=== PATIENT | female | born 1995 | race Caucasian/White ===

== ENCOUNTER → 2020-07-09 10:25 | Outpatient (CLI) | payer OTHER, SELFPAY ==
[2020-07-09 09:35] VITALS: BMI 24.8
[2020-07-09 10:57] LABS: Absolute Lymphocyte Count 2.04 X10^3/uL (0.83-4.51); Absolute Neutrophil Count 6.5 X10^3/uL (2.0-7.7); Basophil# 0.06 X10^3/uL; Basophil% 0.6 % (0-1); Eosinophil# 0.37 X10^3/uL; Eosinophils% 3.8 % (0-5); Hematocrit 41.2 % (37-47); Hemoglobin 13.5 g/dL (12.0-15.0); Lymphocyte # 2.04 X10^3/ul (4.0); Lymphocyte % 21.1 % (19-41); Mean Corp Hgb Conc 32.8 g/dL (32-36); Mean Corpuscular Hgb 28.7 pg (27.0-32.0); Mean Corpuscular Volume 87.5 fL (81-99); Monocyte% 7.2 % (0-10); NRBC Flagged by Analyzer 0 % (0-5); Neutrophil # 6.46 X10^3/uL (2.7-7.7); Platelet Count 315 K/mm3 (150-450); RBC Distribution Width CV 13.7 % (11.6-14.6); RBC Distribution Width SD 44.6 fl (35.1-43.9); Red Blood Count 4.71 M/mm3 (4.2-5.4); White Blood Count 9.7 K/mm3 (4.4-11.0)
[2020-07-09 11:14] LABS: Amphetamine Urine VISTA NEGATIVE (<1000 ng/mL); Barbiturate Urine VISTA NEGATIVE (< 200 ng/mL); Benzodiazepine Urine VISTA NEGATIVE (< 200 ng/mL); Cocaine Urine VISTA NEGATIVE (< 300 ng/mL); Ecstacy Urine VISTA NEGATIVE (< 500 ng/mL); Methadone Urine VISTA NEGATIVE (< 300 ng/mL); PCP Urine VISTA NEGATIVE (< 25 ng/mL); THC Urine VISTA NEGATIVE (< 50 ng/mL); Vista UDS pH Range 6
[2020-07-09 12:46] LABS: HIV - WCH Non-Reactive (Nonreactive); Hepatitis B Surface Antigen Non-Reactive (Nonreactive); Hepatitis C Antibody Non-Reactive (Nonreactive); Rubella IgG 37.8 IU/mL
[2020-07-10 05:23] LABS: Rapid Plasmin Reagin (RPR) NONREACTIVE (NONREACTIVE)
[2020-07-12 03:06] LABS: Chlamydia By Nucleic Acid AMP Negative (Negative)
[2020-07-12 08:12] LABS: Gonococcus By Nucleic Acid AMP Negative (Negative)
[2020-07-15 16:40] LABS: HPV Reflexed? NOT INDICATED
== END ==
PROVIDERS: Referring Provider Obstetrics & Gynecology; Visit Provider Obstetrics & Gynecology
DX: Z34.00 Encounter for supervision of normal first pregnancy, unspecified trimester (principal); Z12.4 Encounter for screening for malignant neoplasm of cervix
CPT/HCPCS: 36415; 80307; 85025; 86592; 86703; 86762; 86803; 86850; 86900; 86901; 87086; 87340; 87491; 87591; 88175; G0145

== ENCOUNTER → 2020-11-25 09:34 | Outpatient (CLI) | payer OTHER, SELFPAY ==
[2020-11-25 09:05] VITALS: BMI 28.8
[2020-11-25 10:22] LABS: Absolute Lymphocyte Count 1.55 X10^3/uL (0.83-4.51); Absolute Neutrophil Count 6.3 X10^3/uL (2.0-7.7); Basophil# 0.05 X10^3/uL; Basophil% 0.6 % (0-1); Eosinophil# 0.28 X10^3/uL; Eosinophils% 3.2 % (0-5); Hematocrit 39.8 % (37-47); Hemoglobin 12.9 g/dL (12.0-15.0); Lymphocyte # 1.55 X10^3/ul (4.0); Lymphocyte % 17.6 % (19-41); Mean Corp Hgb Conc 32.4 g/dL (32-36); Mean Corpuscular Hgb 29.4 pg (27.0-32.0); Mean Corpuscular Volume 90.7 fL (81-99); Mean Platelet Vol. 9.8 fl (6.2-12.0); Monocyte# 0.57 X10^3/uL; Monocyte% 6.5 % (0-10); NRBC Flagged by Analyzer 0 % (0-5); Neutrophil # 6.28 X10^3/uL (2.7-7.7); Neutrophil % 71.3 % (47-70); Platelet Count 230 K/mm3 (150-450); RBC Distribution Width CV 13.3 % (11.6-14.6); Red Blood Count 4.39 M/mm3 (4.2-5.4); White Blood Count 8.8 K/mm3 (4.4-11.0)
[2020-11-25 10:27] LABS: Glucose Challenge Gest 1H 50g 89 mg/dL (70-140)
== END ==
PROVIDERS: Referring Provider Nurse Practitioner Women's Health; Visit Provider Nurse Practitioner Women's Health
DX: Z34.90 Encounter for supervision of normal pregnancy, unspecified, unspecified trimester (principal)
CPT/HCPCS: 36415; 82950; 85025

== ENCOUNTER → 2021-01-23 | Outpatient (CLI) | payer OTHER, SELFPAY ==
[2021-01-23 09:04] VITALS: BMI 29.7
== END | disposition home or self-care (01) ==
LOC: LABSPEC 12:19
PROVIDERS: Referring Provider Obstetrics & Gynecology; Visit Provider Obstetrics & Gynecology
DX: Z34.93 Encounter for supervision of normal pregnancy, unspecified, third trimester (principal); Z3A.36 36 weeks gestation of pregnancy
CPT/HCPCS: 87081

== ENCOUNTER → 2021-02-02 14:09 | Outpatient (CLI) | payer OTHER, SELFPAY ==
[2021-01-07 08:51] VITALS: BMI 29.5
[2021-01-29 08:51] VITALS: BMI 30.1
== END ==
PROVIDERS: Referring Provider Obstetrics & Gynecology; Visit Provider Obstetrics & Gynecology
DX: Z34.93 Encounter for supervision of normal pregnancy, unspecified, third trimester (principal)
CPT/HCPCS: 87635; C9803; U0002; U0003

== ENCOUNTER 2021-02-09 02:15 | Inpatient (IN) | payer OTHER, SELFPAY ==
[2021-02-05 09:10] VITALS: BMI 29.6
[2021-02-09] VITALS (40 sets, daily range): BP systolic 102–145; BP diastolic 56–111; PULSE 73–105; RESP 16–18; TEMP 36.3–37.2; O2SAT 80–100; BMI 30.2
[2021-02-09 02:20] LABS: ROM Internal Control Test YES-OK TO RESULT pt. (Internal QC)
[2021-02-09 02:21] LABS: ROM Patient Test POSITIVE (Negative)
[2021-02-09] MEDS: Lactated Ringers 1,000 ML 200 ML IV (02:40)
[2021-02-09] MEDS: Lactated Ringers 500 ML 999 ML IV (02:40)
[2021-02-09 02:51] LABS: Absolute Lymphocyte Count 2.33 X10^3/uL (0.83-4.51); Absolute Neutrophil Count 8.1 X10^3/uL (2.0-7.7); Basophil# 0.05 X10^3/uL; Basophil% 0.4 % (0-1); Eosinophil# 0.22 X10^3/uL; Eosinophils% 1.9 % (0-5); Hematocrit 41.2 % (37-47); Hemoglobin 13.5 g/dL (12.0-15.0); Lymphocyte # 2.33 X10^3/ul (0.83-4.51); Lymphocyte % 19.7 % (19-41); Mean Corp Hgb Conc 32.8 g/dL (32-36); Mean Corpuscular Hgb 28.1 pg (27.0-32.0); Mean Corpuscular Volume 85.8 fL (81-99); Mean Platelet Vol. 11.3 fl (6.2-12.0); Monocyte# 1.02 X10^3/uL; Monocyte% 8.6 % (0-10); NRBC Flagged by Analyzer 0 % (0-5); Neutrophil # 8.13 X10^3/uL (2.7-7.7); Neutrophil % 68.7 % (47-70); Platelet Count 215 K/mm3 (150-450); RBC Distribution Width CV 13.4 % (11.6-14.6); RBC Distribution Width SD 41.7 fl (35.1-43.9); White Blood Count 11.8 K/mm3 (4.4-11.0)
--- NOTE | 2021-02-09 02:53 | PCM.HPOB.BLA ---
- Problem List (1) 36 weeks gestation of Status: Acute Comment: COVID test ordered 01/21/21 (sche 02/02 at 1350) NEGATIVE (2) Status: Acute Qualifiers: Comment: Declines genetic, carrier, and AFP. Normal anatomy (3) Supervision of normal first Status: Acute Qualifiers: Comment: PRR TAB 02/12/21 Boy! 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 Patient has clear loss of fluid no significant vaginal bleeding has been feeling good movement. She had initial 4-minute heart rate deceleration down into the 70s upon initial presentation which had good recovery with reassuring status afterwards. OB Visit TAB Calculator Estimated Delivery Date Method Current WG Current Estimate 02/12/21 LMP (Certain) 39w 0d Expected Delivery Route/Plan Labor Preferences- CB/BF classes: yes labor support person: Sara labor intervention preferences: declines hep B, ok with vitamin K and eye ointment, open to standard interventions pain management options preferred: open to epidural but desires natural cut cord/dad catch: cord : yes PP control planned: considering IUD discussed possible routes of delivery and associated risks: discussed possible delivery modalities and possible indications for each including R/B/A of , VAVD, FAVD, and CS. questions answered. special requests: none Specific Issue/Plans flu vaccine: declined tdap vaccine: declined rhogam: na LARC form signed: yes movement and labor precautions reviewed. Problem list reviewed and updated with the most current plan of care details and appropriate orders placed. Relevant counseling for the gestational age provided. Continue routine care and follow up unless otherwise noted in visit notes/problem list details Initial Weight: 160 lb Date EGA Weight BP Urine Prot Glucose FHR FuHt Pres Dilation Effaced St Visit Note 07/09/20 8w 6d 163 lb 4 oz (+3 lb 4 oz) 138/82 180 GP - CRL 180 consistent with LMP. GP - CRL 16mm consistent with LMP. 08/06/20 12w 6d 167 lb 6 oz (+7 lb 6 oz) 120/80 Negative Negative 155 GP - no cramping or bleeding. Nausea improving. Declines genetic testing. 09/01/20 16w 4d 168 lb (+8 lb) 118/78 Negative Negative 150 SM- no vb lof no cramping 09/30/20 20w 5d 177 lb 8 oz (+17 lb 8 oz) 124/70 Negative Negative 145 GP - no cramping or bleeding +FM. Nl anatomy. Planning to put envelope with gender under tree and open [place] morning. 11/06/20 26w 0d 184 lb (+24 lb) 130/78 Negative Negative 155 GP - no LOF, VB, DFM, ctx. Having a boy! Considering Guerrero vs. Samuels for names. GCT next visit. 11/25/20 28w 5d 189 lb 6 oz (+29 lb 6 oz) 128/64 Negative Negative 148 28 MH:No VB, LOF. Good FM. 28 wk labs, larc. Considering IUD pp. Consider tdap next visit. 12/12/20 31w 1d 191 lb (+31 lb) 134/80 Negative Negative 140 31 GP - no LOF, VB, DFM, ctx. Discussed labor preferences and routes of delivery. 12/24/20 32w 6d 191 lb 6 oz (+31 lb 6 oz) 120/70 Negative Negative 135 32 GP - no LOF, VB, DFM, ctx. Denies complaints. 01/07/21 34w 6d 194 lb 6 oz (+34 lb 6 oz) 112/80 Negative Negative 140 34 GP - no LOF, VB, DFM, ctx. 01/23/21 37w 1d 196 lb (+36 lb) 116/80 Negative Negative 140 37 Cephalic 2 40 -2 SM- no vb lof good fm no regular ctx gbs done 01/29/21 38w 0d 198 lb (+38 lb) 118/86 Negative Negative 150 38 Cephalic 3 70 -2 GP - no LOF, VB, DFM, ctx. Membranes swept today. COVID testing rescheduled. 02/05/21 39w 0d 195 lb (+35 lb) 130/72 Negative Negative 150 39 Cephalic 3 70 -2 SM- no vb lof good fm no rgular ctx ACOG First Trimester First Trimester: Desire for , Alcohol, Tobacco Cessation, Illicit/Recreational Drug/Substance Use, Intimate Partner Violence, Barriers to care, Unstable Housing, Communication Barriers, Environmental/Work Hazards, Anticipated Course of Care, Toxoplasmosis Precations, Use of Any medications, Sexual activity, Exercise, Dental Care, Childbirth classes/Hospital facilities, Travel, Indications for US and Screening for Aneuploidy Second Trimester Second Trimester: Signs and Symptoms of Labor, Selecting a care provider, Reproductive Life Planning, Care Planning, Depression/Anxiety and Intimate Partner Violence; discussed Tobacco Cessation Diagnostics Diagnostics Diagnostics Glucose 1 Hr 50 gm 89 mg/dL (70-140) 11/25/20 Hgb 12.9 g/dL (12.0-15.0) 11/25/20 Hct 39.8 % (37-47) 11/25/20 Details: HIV: Urine Culture: Sequential Screen: NIPT Screen: ROS Const Reports system reviewed and no additional complaints, except as docu Card Reports system reviewed and no additional complaints, except as docu Resp Reports system reviewed and no additional complaints, except as docu GI Reports system reviewed and no additional complaints, except as docu, Reports nausea Reports system reviewed and no additional complaints, except as docu Musc Reports system reviewed and no additional complaints, except as docu Exam Const General: cooperative, healthy appearing, comfortable, anxious HENMT Head: normal to inspection Nose: external nose normal Face and sinus: normal facial exam Neck Neck: normal visual inspection, full ROM, no lymphadenopathy Thyroid: thyroid normal Chest Chest palpation & inspection: normal inspection of the chest Resp Effort & Inspection: normal respiratory effort GI Inspection: normal to inspection Palpation: soft, other (gravid uterus) Other: infant vertex and appropriate size for gestational age Other: Cervical Exam: Extrem General: pedal edema Results POC Urinalysis 2 Dip (Clinic) Office Urine Glucose Negative Last Edit by Viviana Bragg on 02/05/21 09:15 Office Urine Protein Negative Last Edit by Viviana Bragg on 02/05/21 09:15 Assessment & Plan Problems 1. Supervision of normal first Z34.00 PRR TAB 02/12/21 Boy! Spouse:Sara 2. Z34.90 Declines genetic, carrier, and AFP. Normal anatomy 3. 36 weeks gestation of Z3A.36 COVID test ordered 01/21/21 (sche 02/02 at 1350) NEGATIVE Patient presents IAL, plan expectant management for , pitocin/AROM PRN if needed. Pain management: Plans epidural. GBS negative. Management of any complications: None I have reviewed the [facility] and made any clinically relevant updates. Orders Orders: POC Urinalysis 2 Dip (Clinic) Today Coding Level of Care Code OB Routine Diagnoses Supervision of normal first Z34.00 Z34.90 36 weeks gestation of Z3A.36
[2021-02-09] MEDS: fentaNYL-bupivacaine (epidural) 100 ML BAG EPIDURAL (03:22)
[2021-02-09] MEDS: Oxytocin 30 units/NS 500 ml 30 UNITS/500 ML IV.SOLN 334 UNITS IV (04:22)
--- NOTE | 2021-02-09 04:30 | PCM.OPRPT ---
Problem List (1) 36 weeks gestation of Status: Acute Comment: COVID test ordered 01/21/21 (sche 02/02 at 1350) NEGATIVE (2) Status: Acute Qualifiers: Comment: Declines genetic, carrier, and AFP. Normal anatomy (3) Supervision of normal first Status: Acute Qualifiers: Comment: PRR TAB 02/12/21 Boy! Spouse:Sara Vaginal Delivery Maternal Presentation: Active Labor ial 5 cm Amniotic Membrane Rupture Type: Spontaneous at home Amniotic Fluid Description: Clear Final TAB: 02/12/21 Gestational age: 39 Weeks and 4 Days Date of Procedure: 02/09/21 Pre-Operative Diagnosis: ial Post-Operative Diagnosis: same Surgery/ Procedure Performed: Spontaneous Vaginal Delivery Type of Anesthesia: Epidural - inadequate, Local with 1% lidocaine, Pudendal block with 1% lidocaine Description of Procedure: Patient began pushing and delivered the head in the asha presentation. Epidural was inadequate therefore a pudendal block was placed bilaterally, 2 cm medial and posterior to the ischial spines with 10cc lidocaine bilaterally injected. The head was delivered atraumatically. The anterior and posterior shoulders delivered without complication followed by the rest of the infant and the infant was placed on the maternal abdomen. Delayed cord clamping was employed for approximately 60 seconds. Cord was clamped and cut and gentle traction was applied to the cord and the placenta delivered spontaneously immediately following it was noted to be intact with three-vessel cord. The perineum and vagina were inspected and noted to have a first-degree perineal laceration repaired in the usual fashion with 3-0 Vicryl repeat. EBL was 100 cc. Patient and infant tolerated delivery well.asha Presentation: ASHA Placental Delivery Description: Spontaneous Placenta Disposition: [facility] Cord Vessel Description: 3 Vessels Cord Entanglement: None Estimated Blood Loss: 100 Infant A gender: Male Episiotomy Description: None Laceration: Perineal Extension/lac, 2nd degree Medications given after delivery: IV Pitocin Complications: None Multi Select Codes - Urinary/Genital Urinary/Genital CPT Codes: 41499 Vaginal Delivery global pkg - pudendal block also placed
[2021-02-09] MEDS: 0.9% Saline Lock 10 ML Syringe IV (06:43)
[2021-02-10 00:45] VITALS: BP 128/71; PULSE 74; RESP 16; TEMP 36.9; O2SAT 99
[2021-02-10 08:00] VITALS: BP 118/63; PULSE 77; RESP 18; TEMP 36.7; O2SAT 96
--- NOTE | 2021-02-10 10:38 | PCM.PN.OB ---
Subjective Subjective: Patient doing well without complaints. Tolerating PO. Ambulating and voiding without difficulty. Breast feeding well. Denies chest pain, shortness of breath, calf pain/swelling, fevers, chills, lightheadedness. Objective Data Objective Data Vital Signs: Vital Signs Temp Pulse Resp BP Pulse Ox 98.0 F 77 18 118/63 96 02/10/21 08:00 02/10/21 08:00 02/10/21 08:00 02/10/21 08:00 02/10/21 08:00 Oxygen Delivery Method Room Air Weight: 199 lb Body Mass Index (BMI) 30.2 Intake & Output: Intake and Output for Last 24 Hours 02/08/21 02/09/21 02/10/21 23:59 23:59 23:59 Intake Total 1805.40 / 1805.40 Output Total 20 / Balance 1785.40 / 1785.40 Lab / Micro Data Result Diagrams: 02/09/21 02:40 Physical Exam Const alert and oriented x3 General Appearance: cooperative Resp normal respiratory effort GI Palpation: soft and other Other Details: FF below U ; Negative for tender Assessment & Plan Assessment/Plan (1) : Status: Resolved Code(s): Z34.90 - Encounter for supervision of normal , unspecified, unspecified trimester Plan: s/p PPD # 1 1. routine post delivery care 2. breast feeding- support given 3. rh positive 4. rubella immune 5. home today
--- NOTE | 2021-02-10 10:46 | DCINST_ITS ---
Discharge Instructions Outpatient Procedure Reason For Visit: VAG Diet Discharge Diet: No restrictions Activity Discharge Activity: Return to Normal Activity and May Take a Tub Bath (in 4-6 weeks) May shower in (days): 0 May resume sexual activity in: 6-8 weeks Weight Bearing Status: Weight bearing as tolerated Lifting Restrictions: none Dressing / Incision Call your doctor if you observe: Fever of 101 or Higher, Using more than one pad per hour, Shortness of breath, Chest pain, Uncontrolled pain and - (If any issues, please contact the [facility] for support) Follow Up Care Please Follow Up With: [facility] When: 1 week if elevated blood pressures, and in 6 weeks for full visit. If you would like an IUD inserted at your visit, please inform staff when you call to schedule of this. Test Results: Test results from this visit will be discussed in further detail at your follow-up appointment, if applicable. Discharge Plan Admission Admit Date/Time: 02/09/21 02:15 Attending Provider: Kristina Beyer Primary Care Provider: Care Physician,Vanessa Primary Discharge Orders/Prescriptions Prescriptions: No Action PNV cmb#95-ferrous fumarate-FA 1 EACH tablet 1 tablet PO DAILY RF: 0 Referrals: Care Physician,No Primary [Primary Care Provider] -
[2021-02-10 15:03] VITALS: BP 114/72; PULSE 78; RESP 18; TEMP 36.4; O2SAT 97
== END 2021-02-10 17:40 | disposition home or self-care (01) | DRG 807 ==
LOC: WPOUT 02:17 → WP 02:17
PROVIDERS: Admitting Provider Obstetrics & Gynecology; Visit Provider Obstetrics & Gynecology
DX: O76 Abnormality in fetal heart rate and rhythm complicating labor and delivery (principal); Z37.0 Single live birth; O70.1 Second degree perineal laceration during delivery; Z3A.39 39 weeks gestation of pregnancy
CPT/HCPCS: 59025; 59050; 84112; 85025; 86850; 86900; 86901; 99218; J7120; A4216; G0378

== ENCOUNTER → 2022-06-11 | Outpatient (CLI) | payer OTHER, SELFPAY ==
[2022-06-11 12:36] LABS: Absolute Lymphocyte Count 1.99 X10^3/uL (0.83-4.51); Absolute Neutrophil Count 6.9 X10^3/uL (2.0-7.7); Basophil# 0.04 X10^3/uL; Basophil% 0.4 % (0-1); Eosinophil# 0.23 X10^3/uL; Eosinophils% 2.4 % (0-5); Hematocrit 40.2 % (37-47); Hemoglobin 13.6 g/dL (12.0-15.0); Lymphocyte # 1.99 X10^3/ul (0.83-4.51); Lymphocyte % 20.4 % (19-41); Mean Corp Hgb Conc 33.8 g/dL (32-36); Mean Corpuscular Hgb 29.4 pg (27.0-32.0); Mean Platelet Vol. 10.2 fl (6.2-12.0); Monocyte% 6.1 % (0-10); NRBC Flagged by Analyzer 0 % (0-5); Neutrophil # 6.87 X10^3/uL (2.7-7.7); Neutrophil % 70.3 % (47-70); Platelet Count 280 K/mm3 (150-450); RBC Distribution Width CV 13.9 % (11.6-14.6); RBC Distribution Width SD 44.4 fl (35.1-43.9); Red Blood Count 4.62 M/mm3 (4.2-5.4); White Blood Count 9.8 K/mm3 (4.4-11.0)
[2022-06-11 15:48] LABS: HIV - WCH Non-Reactive (Nonreactive); Hepatitis B Surface Antigen Non-Reactive (Nonreactive); Hepatitis C Antibody Non-Reactive (Nonreactive); Rubella IgG Reactive (Nonreactive); Syphilis Antibodies Non-reactive
[2022-06-11 18:01] LABS: Amphetamine Urine VISTA NEGATIVE (<1000 ng/mL); Barbiturate Urine VISTA NEGATIVE (< 200 ng/mL); Benzodiazepine Urine VISTA NEGATIVE (< 200 ng/mL); Cocaine Urine VISTA NEGATIVE (< 300 ng/mL); Ecstacy Urine VISTA NEGATIVE (< 500 ng/mL); Methadone Urine VISTA NEGATIVE (< 300 ng/mL); PCP Urine VISTA NEGATIVE (< 25 ng/mL); THC Urine VISTA NEGATIVE (< 50 ng/mL); Vista UDS pH Range 6
[2022-06-14 21:08] LABS: Chlamydia By Nucleic Acid AMP Negative (Negative)
[2022-06-16 15:24] LABS: Gonococcus By Nucleic Acid AMP Negative (Negative)
== END | disposition home or self-care (01) ==
PROVIDERS: Referring Provider Obstetrics & Gynecology; Visit Provider Obstetrics & Gynecology
DX: Z34.91 Encounter for supervision of normal pregnancy, unspecified, first trimester (principal); Z3A.13 13 weeks gestation of pregnancy
CPT/HCPCS: 36415; 80307; 85025; 86703; 86762; 86780; 86803; 86850; 86900; 86901; 87086; 87340; 87491; 87591

== ENCOUNTER → 2022-08-16 | Outpatient (CLI) | payer OTHER, SELFPAY ==
--- NOTE | 2022-08-16 08:08 | US_ITS ---
INDICATION: Anatomy. EXAMINATION: Ultrasound US OB Greater Than 14 Weeks TECHNIQUE: Transabdominal and transvaginal pelvic ultrasound was performed. COMPARISON: None. LMP: March 09, 2022 Beta-hCG: Unknown. Provided EGA: December 14, 2022 FINDINGS: INTRAUTERINE GESTATION(s): Single. ESTIMATED GESTATIONAL AGE: 22 weeks 6 days ESTIMATED DUE DATE (TAB): December 14, 2022 HEART MOTION is 147 bpm. AMNIOTIC FLUID INDEX (MIKE): Normal. Largest pocket measures 6.58 cm ESTIMATED WEIGHT: 5 47 g Percentile 46%. BIOPHYSICAL PROFILE (BPP): Not assessed. PRESENTATION: Cephalic PLACENTA: Anterior. There is no placenta previa or abruption. Grade 0 CERVIX: 3.2 cm MATERNAL OVARIES: No adnexal masses. FREE FLUID: None. Evaluation of anatomy demonstrates the lateral ventricles, choroid cysts, cerebellum, cisterna magna and face nose and lips appear normal. The four-chamber view of the heart is visualized. The diaphragm, stomach, abdominal wall, 3 vessel cord and cord insertion, kidneys and urinary bladder are visualized. There is mild dilatation of the bilateral renal pelvises. The cervical, thoracic and lumbar spine and sacrum are visualized. The upper and lower extremities are visualized. US/OB Anatomy Scan IMPRESSION: 1. Live single intrauterine at 22 weeks, 6 days. TAB is December 14, 2022. 2. EFW 547 g. 3. Adequate amniotic fluid. 4. Anterior grade 0 placenta. 5. Vertex presentation. 6. Normal anatomy. Electronically Signed: Josesito Boone DO at 21:53 EDT ,
== END | disposition home or self-care (01) ==
PROVIDERS: Referring Provider Registered Nurse; Visit Provider Registered Nurse
DX: Z34.90 Encounter for supervision of normal pregnancy, unspecified, unspecified trimester (principal)
CPT/HCPCS: 76805; 76817

== ENCOUNTER → 2022-09-27 | Outpatient (CLI) | payer OTHER, SELFPAY ==
[2022-09-27 11:46] LABS: Basophil# 0.04 X10^3/uL; Basophil% 0.5 % (0-1); Eosinophil# 0.26 X10^3/uL; Eosinophils% 3.1 % (0-5); Hematocrit 37.3 % (37-47); Hemoglobin 12.3 g/dL (12.0-15.0); Lymphocyte % 16.8 % (19-41); Mean Corpuscular Hgb 29.4 pg (27.0-32.0); Monocyte# 0.61 X10^3/uL; Monocyte% 7.3 % (0-10); NRBC Flagged by Analyzer 0 % (0-5); Neutrophil # 5.97 X10^3/uL (2.7-7.7); Neutrophil % 71.6 % (47-70); Platelet Count 218 K/mm3 (150-450); RBC Distribution Width CV 13.3 % (11.6-14.6); RBC Distribution Width SD 43.8 fl (35.1-43.9); Red Blood Count 4.19 M/mm3 (4.2-5.4); White Blood Count 8.3 K/mm3 (4.4-11.0)
[2022-09-27 11:55] LABS: Glucose Challenge Gest 1H 50g 110 mg/dL (70-140)
== END | disposition home or self-care (01) ==
LOC: PAVLAB 11:22
PROVIDERS: Referring Provider Registered Nurse; Visit Provider Registered Nurse
DX: Z34.82 Encounter for supervision of other normal pregnancy, second trimester (principal)
CPT/HCPCS: 36415; 82950; 85025

== ENCOUNTER → 2022-11-17 | Outpatient (CLI) | payer OTHER, SELFPAY ==
[2022-11-18 01:46] LABS: Group B Strep DNA By PCR Negative (Negative); Internal Control PASS; Probe Check PASS; Specimen Processing Control PASS
== END | disposition home or self-care (01) ==
PROVIDERS: Referring Provider Nurse Practitioner Women's Health; Visit Provider Nurse Practitioner Women's Health
DX: Z34.90 Encounter for supervision of normal pregnancy, unspecified, unspecified trimester (principal)
CPT/HCPCS: 87081; 87653

== ENCOUNTER 2022-12-06 10:21 | Inpatient (IN) | payer OTHER, SELFPAY ==
[2022-12-06] VITALS (15 sets, daily range): BP systolic 110–141; BP diastolic 57–89; PULSE 70–104; RESP 16; TEMP 36.6–37.1; O2SAT 98–100; BMI 30.7
[2022-12-06] MEDS: Lactated Ringers 1,000 ML 200 ML IV (10:25)
[2022-12-06 10:47] LABS: Absolute Lymphocyte Count 1.86 X10^3/uL (0.83-4.51); Absolute Neutrophil Count 8.3 X10^3/uL (2.0-7.7); Basophil# 0.04 X10^3/uL; Basophil% 0.3 % (0-1); Eosinophil# 0.19 X10^3/uL; Eosinophils% 1.6 % (0-5); Hematocrit 39.5 % (37-47); Hemoglobin 12.7 g/dL (12.0-15.0); Lymphocyte # 1.86 X10^3/ul (0.83-4.51); Lymphocyte % 16.1 % (19-41); Mean Corp Hgb Conc 32.2 g/dL (32-36); Mean Corpuscular Hgb 26.8 pg (27.0-32.0); Mean Corpuscular Volume 83.3 fL (81-99); Mean Platelet Vol. 10.9 fl (6.2-12.0); Monocyte# 0.88 X10^3/uL; Monocyte% 7.6 % (0-10); NRBC Flagged by Analyzer 0 % (0-5); Neutrophil # 8.28 X10^3/uL (2.7-7.7); Neutrophil % 71.7 % (47-70); Platelet Count 233 K/mm3 (150-450); RBC Distribution Width CV 13.6 % (11.6-14.6); RBC Distribution Width SD 41.6 fl (35.1-43.9); Red Blood Count 4.74 M/mm3 (4.2-5.4); White Blood Count 11.6 K/mm3 (4.4-11.0)
[2022-12-06] MEDS: Oxytocin 10 UNITS/ML Vial IM (11:00)
--- NOTE | 2022-12-06 11:10 | HP.PCM.OB_ITS ---
HPI - General General Date of Admission: 12/06/22 HPI Narrative JULY ROJAS, is a 27 F who presents at 38.6 with contractions since this morning, increasing in intensity. low risk . 100/0 with pressure to push per nursing. Maternal Data Information TAB Calculator Estimated Delivery Date Method Current WG Current Estimate 12/14/22 LMP (Certain) 38w 6d Other Estimates 12/14/22 Ultrasound #1 38w 6d PFSH PFSH Medical History (Updated 12/06/22 @ 11:13 by Akanksha Castro CNM) Seasonal allergies Home Medications vit no.95-ferrous fumarate 28 mg-folic acid 800 mcg tablet 1 tablet PO DAILY 02/09/21 [History Last Taken 02/07/21 08:00] Allergy/AdvReac Type Severity Reaction Status Date / Time No Known Allergies Allergy Verified 12/06/22 10:26 Family History Father Hypertension Social History adopted: No household members: spouse and children housing: house number of children: 1 current occupational status: employed 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 current occupational exposures/hazards: No pets and animals: Yes (Not managing litterbox) pets and animals: cat(s) history of recent travel: No sexually active: Yes Smoking Status: Never smoker second hand exposure: No alcohol intake: former details: not while substance use type: does not use well-balanced diet: daily or most days caffeine: No eating out: 1-3 times/week during the past year weight has: remained stable ruben/episcopalian: [employer]ism seatbelt use: always do you feel safe at home: Yes additional social history: - Sara History 2 Elective abortions Hx Para 1 Spontaneous abortions Hx # Term Pregnancies 1 Ectopic pregnancies Hx # Pregnancies Multiple births # of living children 1 Past Pregnancies Del. Date Name GA/Weeks Outcome Route Bth Weight Gen Labor Lgth Anesthesia Del Locatn Provider FOB 02/09/21 Gu[facility] 39 live - full term Male [facility] Kayleen Visit Details Expected Delivery Route/Plan Labor Preferences- CB/BF classes: recommended, labor support person: [Sara] labor intervention preferences: none pain management options preferred: open to epidural cut cord/dad catch: cut cord : plans PP control planned:condoms discussed possible routes of delivery and associated risks: [] special requests: [] Plans Covid status: discussed Flu vaccine: discussed Tdap vaccine: dicussed Rhogam: na LARC form signed: obtained movement and labor precautions reviewed. Problem list reviewed and updated with the most current plan of care details and appropriate orders placed. Relevant counseling for the gestational age provided. Continue routine care and follow up unless otherwise noted in visit notes/problem list details OB Flowsheet Initial Weight: Not Recorded Date -?-?-?-?-?-?-?-?-?-?-?-?- EGA Weight BP Urine Prot -?-?-?-?-?-?-?-?-?-?-?-?- Glucose FHR FuHt Pres Dilation -?-?-?-?-?-?-?-?-?-?-?-?- Effaced St Visit Note 06/11/22 -?-?-?-?-?-?-?-?-?-?-?-?- 13w 3d 171 lb 98/70 -?-?-?-?-?-?-?-?-?-?-?-?- 160 -?-?-?-?-?-?-?-?-?-?-?-?- SM- CRL cons wit h LMP 07/09/22 -?-?-?-?-?-?-?-?-?-?-?-?- 17w 3d 178 lb 130/70 Negative -?-?-?-?-?-?-?-?-?-?-?-?- Negative 150 -?-?-?-?-?-?-?-?-?-?-?-?- SM- no vb karinai ng counseled about vaccinations 08/02/22 -?-?-?-?-?-?-?-?-?-?-?-?- 20w 6d 183 lb 6 oz 122/77 Nega tive -?-?-?-?-?-?-?-?-?-?-?-?- Negative 141 20 -?-?-?-?-?-?-?-?-?-?-?-?- LC- LC-no vb,cramping, lof. +flu tters. anatomy scan orderd. 08/30/22 -?-?-?-?-?-?-?-?-?-?-?-?- 24w 6d 189 lb 6 oz 113/77 Nega tive -?-?-?-?-?-?-?-?-?-?-?-?- Negative 140 24 -?-?-?-?-?-?-?-?-?-?-?-?- LC-no vb, crampi ng. feeling well. has trip for work scheduled around 35 weeks. discussed risk and benefits. 09/27/22 -?-?-?-?-?-?-?-?-?-?-?-?- 28w 6d 194 lb 116/74 -?-?-?-?-?-?-?-?-?-?-?-?- 140 29 -?-?-?-?-?-?-?-?-?-?-?-?- SM- no vb lof go od fm no regular ctx 10/19/22 -?-?-?-?-?-?-?-?-?-?-?-?- 32w 0d 194 lb 4 oz 125/78 Nega tive -?-?-?-?-?-?-?-?-?-?-?-?- Negative 140 32 -?-?-?-?-?-?-?-?-?-?-?-?- SM- no vb lof go od fm no reuglar ctx 11/05/22 -?-?-?-?-?-?-?-?-?-?-?-?- 34w 3d 198 lb 4 oz 109/74 Nega tive -?-?-?-?-?-?-?-?-?-?-?-?- Negative 130 34 -?-?-?-?-?-?-?-?-?-?-?-?- LC- no vb/ctx/lo f. good fm. no concerns. 11/17/22 -?-?-?-?-?-?-?-?-?-?-?-?- 36w 1d 200 lb 6 oz 120/78 Nega tive -?-?-?-?-?-?-?-?-?-?--?-?- Negative 138 36 -?-?-?-?-?-?-?-?-?-?-?-?- MH-No VB, LOF. G ood Fm. GBS 11/25/22 -?-?-?-?-?-?-?-?-?-?-?-?- 37w 2d 201 lb 110/72 Negative -?-?-?-?-?-?-?-?-?-?-?-?- Negative 148 37 -?-?-?-?-?-?-?-?-?-?-?-?- MH-No Vb, LOF. G ood FM. Occa BH. Declines wanting ointment in baby's eyes or Vit K if a girl. Will discuss further 12/02/22 -?-?-?-?-?-?-?-?-?-?-?-?- 38w 2d 203 lb 4 oz 129/75 -?-?-?-?-?-?-?-?-?-?-?-?- 130 39 Cephalic 3.5 -?-?-?-?-?-?-?-?-?-?-?-?- 50 -2 SM- no vb lof good fm no regular ctx NST FHR Rate Baby A Baseline: 125 Variability:: Moderate Accelerations:: 15 x 15 Decelerations:: None NST Reactive:: Yes FHR Category:: Category I Uterine Activity:: q2-3 minutes ROS Cardiovascular Cardiovascular: Denies abdominal pain, chest pain, diaphoresis or dyspnea Genitourinary Genitourinary: Reports change in urinary stream Musculoskeletal Musculoskeletal: Reports none Integumentary Integumentary: Reports none Neurologic Neurologic: Reports none Psychiatric Psychiatric: Reports none Endocrine Endocrinology: Reports none Hematologic/Lymphatic Hematologic/Lymphatic: Reports none Allergic/Immunologic Allergic/Immunologic: Reports none Vital Signs Vital Signs Vital Signs: 12/06/22 10:30 12/06/22 10:30 12/06/22 10:30 Temperature Temperature Source Temporal Pulse Rate 86 Blood Pressure 141/89 H BP Systolic 141 BP Diastolic 89 Pulse Ox 12/06/22 10:30 12/06/22 10:30 12/06/22 11:06 Temperature 97.9 F Temperature Source Pulse Rate Blood Pressure 120/61 BP Systolic 120 BP Diastolic 61 Pulse Ox 100 12/06/22 11:06 12/06/22 11:06 12/06/22 11:06 Temperature 98.2 F 98.3 F Temperature Source Pulse Rate 86 Blood Pressure BP Systolic BP Diastolic Pulse Ox Weight Weight: 202 lb Body Mass Index (BMI) 30.7 Physical Exam Const alert and oriented x3 Exam Limitations: no limitations HEENT normocephalic Neck full ROM Chest inspection of chest normal Resp normal respiratory effort, normal air movement and no retractions Effort and Inspection: symmetric chest movement Cardio regular rate Peripheral Pulses: pulses 2+ throughout GI normal to inspection, nondistended, normoactive bowel sounds Inspection: gravid appearance of the vagina normal External Female Exam: normal appearance of the urethra; Negative for external l esion OB / External & Speculum: external exam normal Manual OB Exam: estimated gestational size appropriate, presentation cephalic, dilated 9, effaced 100 and station 0 (per nursing) Uterus Palpation: Negative for uterus tender Extremity normal to inspection Skin no rashes or lesions noted Psych Activity / Motor Behavior: appropriate eye contact Speech: normal speech Labs Labs Labs: Blood Type A POSITIVE Antibody Screen NEGATIVE Hct 39.5 % (37-47) Hgb 12.7 g/dL (12.0-15.0) Obstetrics US Syphilis Total Ab Non-reactive Rubella IgG Antibody Reactive (Nonreactive) Hep Bs Antigen Non-Reactive (Nonreactive) Chlamydia DNA ([facility]) Negative (Negative) Neisseria gonorrhoeae DNA ([facility]) Negative (Negative) HIV 1&2 Antibody Non-Reactive (Nonreactive) Glucose 1 Hr 50 gm 110 mg/dL (70-140) Group B Strep DNA Negative (Negative) Assessment & Plan (1) Spontaneous onset of labor: PLAN: Patient presents IAL, plan expectant management for . AROM Pain management: plans epidural. GBS neg. Management of any complications: none I have reviewed the [facility] and made any clinically relevant updates. Dr. Beyer updated on admission, exam and poc. agress with midwifery primary management. available for consult
--- NOTE | 2022-12-06 11:16 | EX.PCM.OBRPT ---
Assessment & Plan (1) (spontaneous vaginal delivery): COMMENT: IAL at 38.6 boy :Jameson. ADKINS Maternal Data Information TAB Calculator Estimated Delivery Date Method Current WG Current Estimate 12/14/22 LMP (Certain) 38w 6d Other Estimates 12/14/22 Ultrasound #1 38w 6d Final TAB Source: LMP Gestational age: 38.6 Vaginal Delivery Maternal Presentation Maternal Presentation: Active Labor Operative Information Date of Procedure: 12/06/22 Pre-Operative Diagnosis: Post-Operative Diagnosis: Surgery / Procedure Performed: Spontaneous Vaginal Delivery Type of Anesthesia: None Estimated Blood Loss: 200 Time of Delivery: 10:55 Findings Description of Procedure: Patient began pushing and delivered the head in the SHANE presentation. The head was delivered atraumatically. The anterior and posterior shoulders delivered without complication followed by the rest of the and the was placed on the maternal abdomen. Delayed cord clamping was employed for approximately 3 minutes. Cord was clamped and cut and gentle traction was applied to the cord and the placenta delivered spontaneously immediately following it was noted to be intact with three-vessel cord. The perineum and vagina were inspected and noted to have no laceration. EBL was 200cc. Patient and infant tolerated delivery well. infant with polydactyl on right thumb. will have pedi evaluate. Presentation: Vertex Amniotic Membrane Rupture Type: Artificial Time of Membrane Rupture: 1048 Amniotic Fluid Description: Clear Placental Delivery Description: Spontaneous Placenta Disposition: [facility] Cord Vessel Description: 3 Vessels Cord Entanglement: None A Gender: Male (1 minute): 8 (5 minute): 9 Delayed Cord Clamping: Yes Post Vaginal Delivery Medications Given After Delivery: - (IM pitocin) Episiotomy Description: None Multi Select Codes Addendum Addendum: ATTN CUSTOMER ACCOUNT SPECIALIST:RACIEL DELIVERY
[2022-12-06] MEDS: Naproxen 500 MG Tablet PO (11:53)
[2022-12-07] VITALS (9 sets, daily range): BP systolic 119–128; BP diastolic 57–63; PULSE 68–78; RESP 16; TEMP 36.4–36.9; O2SAT 97–99
--- NOTE | 2022-12-07 07:42 | PN.OBGYN_ITS ---
Subjective Subjective Patient doing well without complaints. Tolerating PO. Ambulating and voiding without difficulty. Feeding well. Denies chest pain, shortness of breath, calf pain/swelling, fevers, chills, lightheadedness. Objective Data Objective Data Vital Signs: Vital Signs Temp Pulse Resp BP Pulse Ox O2 Del Method 97.5 F L 68 16 119/57 L 97 Room Air 12/07/22 03:38 12/07/22 03:38 12/07/22 03:38 12/07/22 03:38 12/07/22 03:38 12/07/22 03:38 Oxygen Delivery Method Room Air Weight: 202 lb Body Mass Index (BMI) 30.7 Intake & Output: Intake and Output for Last 24 Hours 12/05/22 12/06/22 12/07/22 23:59 23:59 23:59 Intake Total 116.67 / 116.67 Output Total 200 / 200 Balance -83.33 / -83.33 Lab / Micro Data Result Diagrams: 12/06/22 10:25 Labs: Laboratory Results - last 24 hr 12/06/22 10:25: WBC 11.6 H, RBC 4.74, Hgb 12.7, Hct 39.5, MCV 83.3, MCH 26.8 L, MCHC 32.2, RDW Std Deviation 41.6, RDW Coeff of Felicia 13.6, Plt Count 233, MPV 10.9, Immature Gran % (Auto) 2.700 H, Neut % (Auto) 71.7 H, Lymph % (Auto) 16.1 L, H[place] % (Auto) 7.6, Eos % (Auto) 1.6, Baso % (Auto) 0.3, Absolute Neuts (auto) 8.3 H, Absolute Lymphs (auto) 1.86, Nucleated RBC % 0 12/06/22 10:25: Blood Type A POSITIVE, Antibody Screen NEGATIVE Physical Exam Const alert and oriented x3 HEENT normocephalic Eyes PERRL Neck full ROM Resp normal respiratory effort GI soft to palpation GI Narrative: FF below U Assessment & Plan (1) (spontaneous vaginal delivery): COMMENT: IAL at 38.6 boy :El. PLAN: Plan s/p PPD # 1 1. routine post delivery care 2. breast feeding- support given 3. rh positive 4. rubella immune 5. home today
== END 2022-12-07 16:20 | disposition home or self-care (01) | DRG 807 ==
LOC: WPOUT 10:25 → WP 10:29
PROVIDERS: Admitting Provider Registered Nurse; Referring Provider Registered Nurse; Visit Provider Registered Nurse
DX: O80 Encounter for full-term uncomplicated delivery (principal); Z37.0 Single live birth; Z3A.38 38 weeks gestation of pregnancy
CPT/HCPCS: 59025; 59050; 85025; 86850; 86900; 86901; 99221; J7120; G0378

== ENCOUNTER → 2023-01-17 | Outpatient (CLI) | payer OTHER, SELFPAY ==
[2023-01-25 16:31] LABS: HPV Reflexed? NOT INDICATED
== END | disposition home or self-care (01) ==
LOC: LABSPEC 13:26
PROVIDERS: Referring Provider Registered Nurse; Visit Provider Registered Nurse
DX: Z12.4 Encounter for screening for malignant neoplasm of cervix (principal)
CPT/HCPCS: 88175; G0145